=== PATIENT | female | born 1990 | race Hispanic/Latino ===

== ENCOUNTER → 2018-04-02 | Outpatient (CLI) | payer BC ==
--- NOTE | 2018-04-02 11:43 | Diagnostic Imaging Report ---
Exam: Abdominal film Clinical History: Constipation Comparison: None. DISCUSSION: The bowel gas pattern shows no dilated, air-filled loops of bowel. Gas and fecal material throughout the large bowel. No mass effect or organomegaly. Regional skeletal structures are intact. IMPRESSION: Nonobstructive bowel gas pattern. Signed by: Dr. Ritchie Rolon M.D. on 04/02/2018 11:39 AM
== END ==
LOC: RAD 10:17
PROVIDERS: ATTEND Internal Medicine
DX: K59.00 Constipation, unspecified (principal)
CPT/HCPCS: 74018; 81025

== ENCOUNTER → 2018-09-12 | Outpatient (CLI) | payer BC ==
--- NOTE | 2018-09-12 15:57 | Diagnostic Imaging Report ---
EXAM: US ABDOMEN COMPLETE INDICATION: Generalized abdominal pain. COMPARISON: KUB 04/02/2018. TECHNIQUE: Transverse and longitudinal thompson scale and color doppler sonographic images of the abdomen were obtained. FINDINGS: LIVER Measures 14.0 cm in the right midclavicular line. Multiple punctate echogenic foci are seen throughout the liver. Normal contour, no masses. SPLEEN 2.6 cm in maximum diameter. Normal echogenicity, no masses. GALLBLADDER No gallbladder wall thickening, distension, stone, or pericholecystic fluid. Negative reported sonographic Moseley's sign. There is an echogenic lesion measuring up to 1 cm in the gallbladder neck with associated Doppler flow. BILE DUCTS No intra nor extra-hepatic biliary dilation. Common bile duct 0.2 cm PANCREAS: Not well visualized due to overlying bowel gas. RIGHT KIDNEY: 11.7 cm Echogenicity: Normal Collecting System: No hydronephrosis Stones: None Cyst/Mass: None LEFT KIDNEY: 13.3 cm Echogenicity: Normal Collecting System: No hydronephrosis Stones: None Cyst/Mass: None VESSELS: Aorta: Visualized portions are within normal size limits Inferior Vena Cava: Visualized portions are normal Main Portal Vein: 0.7 cm, normal size with hepatopetal flow. FREE FLUID: None IMPRESSION: Suspected gallbladder polyp measuring up to 1 cm with associated Doppler flow. Recommend surgical referral. Echogenic foci throughout the liver, which may represent starry storm pattern. This is a nonspecific finding, and could represent acute hepatitis or fasting liver, among other etiologies, in the appropriate clinical setting. Clinical correlation is suggested. Signed by: Dr. Casey Siddiqui MD on 09/12/2018 3:54 PM
== END ==
LOC: US 11:00
PROVIDERS: ATTEND Internal Medicine
DX: R10.84 Generalized abdominal pain (principal)
CPT/HCPCS: 76700

== ENCOUNTER → 2018-09-28 | Day surgery (SDC) | payer BC ==
[2018-09-27 12:22] LABS: BASOPHILS % 0.4 % (0.0-1.0); EOSINOPHILS # (AUTO) 0.1 (0.0-0.4); EOSINOPHILS % 0.9 % (0.0-6.0); HEMATOCRIT 39.8 % (34.2-44.1); HEMOGLOBIN 13.3 g/dL (12.0-16.0); LYMPHOCYTES # (AUTO) 3.3 (1.0-3.2); LYMPHOCYTES % 46.5 % (18.0-39.1); MEAN CORPUSCULAR HEMOGLOBIN 30.5 pg (28-32); MEAN CORPUSCULAR HGB CONC 33.4 g/dL (31-35); MEAN CORPUSCULAR VOLUME 91.3 fL (81-99); MONOCYTES # (AUTO) 0.4 (0.2-0.8); NEUTROPHILS # (AUTO) 3.3 (2.1-6.9); NEUTROPHILS % 47.1 % (38.7-80.0); PLATELET COUNT 266 x10e3/uL (140-360); RED BLOOD COUNT 4.36 x10e6/uL (3.6-5.1); RED CELL DISTRIBUTION WIDTH 12.8 % (11.7-14.4)
[2018-09-27 12:33] LABS: BILIRUBIN,URINE NEGATIVE (NEGATIVE); CLARITY,URINE SL CLOUDY (CLEAR); COLOR,URINE YELLOW (YELLOW); KETONES,URINE NEGATIVE (NEGATIVE); LEUKOCYTE ESTERASE ,URINE NEGATIVE (NEGATIVE); NITRITE,URINE NEGATIVE (NEGATIVE); PROTEIN,URINE DIPSTICK NEGATIVE (NEGATIVE); URINE UROBILINOGEN 0.2 mg/dL (0.2 - 1)
[2018-09-27 12:45] LABS: ALANINE AMINOTRANSFERASE 14 IU/L (0-55); ALBUMIN 3.8 g/dL (3.5-5.0); ALBUMIN/GLOBULIN RATIO 1.2 (0.8-2.0); ALKALINE PHOSPHATASE 54 IU/L (40-150); ANION GAP 10.6 mmol/L (8-16); BLOOD UREA NITROGEN 12 mg/dL (7-26); BUN/CREATININE RATIO 18 (6-25); CALCIUM 9.3 mg/dL (8.4-10.2); CARBON DIOXIDE 26 mmol/L (22-29); CHLORIDE 106 mmol/L (98-107); CREATININE, SERUM 0.66 mg/dL (0.57-1.11); EST GLOMERULAR FILTRATION RATE > 60 ML/MIN (60-); GLUCOSE 72 mg/dL (74-118); POTASSIUM 3.6 mmol/L (3.5-5.1); SODIUM 139 mmol/L (136-145)
[~2018-09-28] MED LIST: ACETAMINOPHEN 1000 MG/100 ML 100 ML IV ONE; AMITIZA8 MCG PO; BUPIVACAINE 0.25%/EPI 30ML SDV INJ ONE; DEXAMETHASONE SOD PHOS INJ 4 MG/ML VIAL ONE; EPHEDRINE SULFATE INJ 50 MG/10 ML SYR ONE; FENTANYL CITRATE/PF 100MCG/2 ML INJ ONE; GLYCOPYRROLATE INJ 1MG/ 5 ML SYR ONE; HYDROMORPHONE 2MG/ML 2 MG/ML ML ONE; LIDOCAINE HCL 2% LOCAL INJ 5 ML SDV VIAL INJ ONE; MIDAZOLAM HCL 2 MG/2 ML VIAL ONE; OMEPRAZOLE40 MG; PROPOFOL IV EMULSION 10 MG/ML 20 ML VIAL ONE; ROCURONIUM BROMIDE 10 MG/ML 5ML VIAL ONE; SEVOFLURANE INHAL SOLN 250 ML PEN BTL ONE
--- OUTSIDE RECORDS SUMMARY | 2018-09-28 09:10 | XMS REPORT ---
[facility] Address Unknown Phone Unavailable Care Team Providers Care Dogman/Woman Name Role Phone Isabela WALKER Unavailable Unavailable Problems This patient has no known problems. Allergies, Adverse Reactions, Alerts This patient has no known allergies or adverse reactions. Medications This patient has no known medications. Results Test Description Test Time Test Comments Text Results Atomic Results Result Comments US ABDOMEN COMPLETE 2018-09-12 15:27:00 [place] [address] Patient Name: JULISSA STEELE MR #: [id number] : 1990 Age/Sex: 27/F Req #: [id number] [facility] Physician: Ordered by: ARRON WALKER MD Report #: [id number] Location: Room/Bed: Procedure: [id number] US/US ABDOMEN COMPLETE Exam Date: 09/12/18 Exam Time: 1124 REPORT STATUS: Signed EXAM: US ABDOMEN COMPLETE INDICATION: Generali zed abdominal pain. COMPARISON: KUB 04/02/2018. TECHNIQUE: Transverse and longitudinal thompson scale and color doppler sonographic images of the abdomen were obtained. FINDINGS: LIVER Measures 14.0 cm in the right midclavicular line. Multiple punctate echogenic foci are seen throughout the liver. Normal contour, no masses. SPLEEN 2.6 cm in maximum diameter. Normal echogenicity, no masses. GALLBLADDER No gallbladder wall thickening, distension, stone, or pericholecystic fluid. Negative reported sonographic Moseley's sign. There is an echogenic lesion measuring up to 1 cm in the gallbladder neck with associated Doppler flow. BILE DUCTS No intra nor extra-hepatic biliary dilation. Common bile duct 0.2 cm PANCREAS: Not well visualized due to overlying bowel gas. RIGHT KIDNEY: 11.7 cm Echogenicity: Normal Collecting System: No hydronephrosis Stones: None Cyst/Mass: None LEFT KIDNEY: 13.3 cm Echogenicity: Normal Margarita ecting System: No hydronephrosis Stones: None Cyst/Mass: None VESSELS: Aorta: Visualized portions are within normal size limits Inferior Vena Cava: Visualized portions are normal Main Portal Vein: 0.7 cm, normal size with hepatopetal flow. FREE FLUID: None IMPRESSION: Suspected gallbladder polyp measuring up to 1 cm with associated Doppler flow. Recommend surgical referral. Echogenic foci throughout the liver, which may represent starry storm pattern. This is a nonspecific finding, and could represent acute hepatitis or fasting liver, among other etiologies, in the appropriate clinical setting. Clinical correlation is suggested. Signed by: Dr. Karolyn Lewis MD on 09/12/2018 3:54 PM Dictated By: KAROLYN LEWIS MD [id number] Transcribed By: LUCIANO on 09/12/18 3130 COPY TO: ARRON WALKER MD ABDOMEN-1VIEW ([facility]) 2018-04-02 11:38:00 [place] [address] Patient Name: JULISSA STEELE MR #: [id number] : 1990 Age/Sex: 27/F Req #: [id number] Adm Physician: Ordered by: ARRON WALKER MD Report #: [id number] Location: [facility] Room/Bed: Procedure: [id number] DX/ABDOMEN-1VIEW (KUB) Exam Date: 04/02/18 Exam Time: 1128 REPORT STATUS: Signed Exam: Abdominal film Clinical History: Constipation Comparison: None. DISCUSSION: The bowel gas pattern shows no dilated, air-filled loops of bowel. Gas and fecal material throughout the large bowel. No mass effect or organomegaly. Regional skeletal structures are intact. IMPRESSION: Nonobstructive bowel gas pattern. Signed by: Dr. Jassi Andujar M.D. on 04/02/2018 11:39 AM Dictated By: JASSI ANDUJAR MD [id number] Transcribed By: LUCIANO on 04/02/18 113 COPY TO: ARRON WALKER MD
--- NOTE | 2018-09-28 14:22 | Operative Report ---
DATE OF PROCEDURE: 09/28/2018 SURGEON: Milton Alva MD PREOPERATIVE DIAGNOSES: Gallbladder polyp, abdominal pain, history of irritable bowel syndrome. POSTOPERATIVE DIAGNOSES: Gallbladder sludge, cholesterolosis of the gallbladder, final path report pending. Normal-appearing uterus and adnexa. No evidence of inflammatory bowel disease, colitis, ileitis or diverticulosis of the small bowel on laparoscopy. PROCEDURE PERFORMED: Laparoscopic cholecystectomy. ANESTHESIA: General. ESTIMATED BLOOD LOSS: Minimal. DRAINS: None. COMPLICATION: None. CARPET JOURNEYMAN: INDICATION AND FINDINGS: The patient is a 27-year-old female, who was referred to the office because of a large gallbladder polyp. She had been complaining of right upper quadrant pain associated with food. The pain was getting more frequent. This was associated with nausea and vomiting. She also complains of bloatedness and constipation. She was told that she had irritable bowel syndrome. The patient is on metformin for irregular menstrual cycles. She had an ultrasound of the gallbladder that revealed a 1 cm polyp in the neck of the gallbladder. The patient had lost about 65 pounds due to dieting. As previously stated, we found the gallbladder that contained cholesterolosis with slight thickening of the wall, there was no ductal dilatation. No gross palpable masses were seen. There was sludge in the gallbladder. DESCRIPTION OF PROCEDURE: With the patient lying on the operative table in the supine position after administration of general endotracheal anesthesia, she was prepped and draped for laparoscopic cholecystectomy. We began the procedure by establishing pneumoperitoneum in the right upper quadrant midclavicular line because the patient was fairly large and then we insufflated the pneumoperitoneum to 15 mm of pressure after the saline drop test was performed. We placed a 5 mm trocar in that location and then introduced a 5 mm camera, placed an umbilical 11/12 trocar and then under direct vision through the umbilical port with the 10 mm camera placed a 10 mm subxiphoid port and finally right anterior axillary trocar was placed. We retracted the gallbladder cephalad, began the dissection on the neck of the gallbladder where it came into view high-riding hepatic artery that was in contact with the neck of the gallbladder with a very short cystic artery. We at this point went ahead and identified the structures, the common duct, the hepatic artery, which appeared to be coursing anterior to the common somewhat in extreme proximity to the neck of the gallbladder. I could not tell for sure if it was going over the common duct, but at any rate, we went ahead and clipped the cystic duct three times distally and once proximally and transected. The cystic artery was transected with the titanium clips. A posterior artery was also identified and transected with the titanium clip. Then we mobilized the gallbladder using electrocautery, countertraction, and hydrodissection until we removed the gallbladder. At this point, we cauterized the gallbladder bed fossa, irrigated the right upper quadrant, then performed diagnostic laparoscopy. We identified the pelvic organs and they were normal, the uterus and both ovaries which were normal for a 27-year-old female. We then ran the small bowel to near the ligament of Treitz and it appeared to be normal. Specifically, there was no evidence of inflammatory bowel disease, no evidence of ileitis, no evidence of cecal inflammation. We did not see the appendix well, but the cecum was soft and pliable. There was no evidence of inflammation in that location. At this point, we then terminated the procedure. We irrigated the right upper quadrant and pelvis and then removed the effluent fluid and then closed the wound using 0 Vicryl for the umbilical fascia, 3-0 Vicryl for the subcutaneous tissue in that location as well as subxiphoid port and the skin of all the ports was closed with chivo. 0.25% Marcaine with epinephrine was used as local block at the end of the case. The patient tolerated the procedure well and taken to recovery room in stable condition. MD KIERRA Pearl/SHER /[id number]
[2018-09-28 15:30] VITALS: BP 112/66
== END | disposition home or self-care (01) ==
LOC: OR 09:08
PROVIDERS: ATTEND Surgery
DX: K82.4 Cholesterolosis of gallbladder (principal); K21.9 Gastro-esophageal reflux disease without esophagitis; N92.6 Irregular menstruation, unspecified; F41.9 Anxiety disorder, unspecified; Z01.812 Encounter for preprocedural laboratory examination; Z79.84 Long term (current) use of oral hypoglycemic drugs; Z68.30 Body mass index [BMI] 30.0-30.9, adult
CPT/HCPCS: 36415; 47562; 80053; 81003; 81025; 85025; 88304; C1766; J0131; J1100; J1170; J2001; J2250; J2704; J3490